=== PATIENT | female | born 1985 | race Caucasian/White ===

== ENCOUNTER 2021-08-11 09:28 | Emergency (ER) | payer MEDICAID ==
[~2021-08-11] VITALS: Ht 165.1 cm; Wt 113.6 kg
[~2021-08-11 09:28] MED LIST: AMOXICILLIN 50500 MG PO; AMOXICILLIN 8751 TAB PO; BACTRIM DS 8001 TA1 PO; CEPHALEXIN500 M1 PO; DOXYCYCLINE 10100 MG PO; LORTAB 5/500 501 TAB PO; METHERGINE0.2 MG/TAB PO; MOTRIN 600600 MG/TAB PO; MOTRIN 800800 MG/TAB PO; NO HOME MEDICATIONS; NORCO 325 MG-51 TAB PO; NORCO 325 MG-7.1 TAB PO; PEN-VEE K500 MG PO; PERCOCET 325 MG1 TA2 PO; PRENATAL 1 PLUS1 TA3 PO; RT ALBUTER2.5 MG/0.5 IH; ULTRAM 50MG TAB50 MG PO; XANAX .25M0.25 MG/TA PO; ZITHROMAX Z PA250 MG PO
[2021-08-11 09:51] VITALS: TEMP 98.3
[2021-08-11 10:40] LABS: BASO % 0.3 % (0.0-2.0); EOS % 0.9 % (0.0-4.0); GRAN # 2.6 K/mm3 (1.4-6.5); GRAN % 73.9 % (42.2-75.2); HEMOGLOBIN 14.1 g/dl (12.5-16.0); LYMPH # 0.6 K/mm3 (1.2-3.4); LYMPH % 18.2 % (20.0-51.0); MEAN CELL VOLUME 78 fl (80.0-100.0); MEAN CORPUSCULAR HEMOGLOBIN 28 pg (27-31); MEAN CORPUSCULAR HGB CONC 35 g/dl (33.0-37.0); MEAN PLATELET VOLUME 11.3 fl (7.4-10.4); MONO # 0.2 K/mm3 (0.1-0.6); MONO % 6.4 % (1.7-9.3); PLATELET COUNT 188 K/mm3 (130-400); RED BLOOD COUNT 5.13 M/mm3 (4.10-5.30); REDCELL DISTRIBUTION WIDTH-CV 12.3 % (11.5-14.5)
[2021-08-11 10:51] LABS: MUCOUS Present (NOT PRESENT); PH 6 (5-8); URINE APPEARANCE Clear (CLEAR/HAZY); URINE BACTERIA Rare /hpf (NONE SEEN); URINE BILIRUBIN Negative (NEGATIVE); URINE BLOOD 3+ (NEGATIVE); URINE COLOR Straw (YELLOW); URINE GLUCOSE 3+ (NEGATIVE); URINE KETONE Trace (NEGATIVE); URINE LEUKOCYTE ESTERASE 1+ (NEGATIVE); URINE NITRATE Negative (NEGATIVE); URINE PROTEIN(semi-quant) Negative (NEGATIVE); URINE UROBILINOGEN Negative (NEGATIVE)
[2021-08-11 11:01] LABS: ALANINE AMINOTRANSFERASE 25 U/L (0-55); ALBUMIN 3.7 gm/dL (3.5-5.0); ALKALINE PHOSPHATASE 60 U/L (40-150); ANION GAP 13 mmol/L (7-16); AST,SGOT 20 U/L (5-34); BILIRUBIN,TOTAL 0.3 mg/dL (0.2-1.2); BLOOD UREA NITROGEN 6 mg/dL (7-19); CALCIUM 8.4 mg/dL (8.4-10.2); CARBON DIOXIDE 25 mmol/L (22-29); CHLORIDE 96 mmol/L (98-107); POTASSIUM 3.4 mmol/L (3.5-4.5); SODIUM 134 mmol/L (136-145); TOTAL PROTEIN 7.6 gm/dL (6.2-8.1)
[2021-08-11 11:07] LABS: GLUCOSE 406 mg/dL (70-99); TROPONIN-I < 0.010 ng/mL (0.00-0.033)
[2021-08-11 11:15] LABS: COLLECTION METHOD CLEAN CATCH
[2021-08-11 13:10] LABS: ANION GAP 10 mmol/L (7-16); BLOOD UREA NITROGEN 6 mg/dL (7-19); CALCIUM 7.8 mg/dL (8.4-10.2); CARBON DIOXIDE 26 mmol/L (22-29); CHLORIDE 100 mmol/L (98-107); CREATININE, serum 0.67 mg/dL (0.57-1.11); GLUCOSE 319 mg/dL (70-99); POTASSIUM 3.7 mmol/L (3.5-4.5); SODIUM 136 mmol/L (136-145)
[2021-08-11 13:21] LABS: TROPONIN-I < 0.010 ng/mL (0.00-0.033)
[2021-08-11 14:27] VITALS: BP 137/90; PULSE 75
[2021-08-11] MEDS ORDERED: GLUCOPHAGE500 MG/TAB PO (14:28)
== END 2021-08-11 14:30 | disposition home or self-care (01) ==
LOC: COL.ER 09:28
PROVIDERS: Emergency Medicine
DX: U07.1 COVID-19 (principal); R55 Syncope and collapse; R20.2 Paresthesia of skin; R73.9 Hyperglycemia, unspecified; R81 Glycosuria; R82.4 Acetonuria; Z28.310 Unvaccinated for COVID-19
CPT/HCPCS: J0610; J1885; J2405; J7030; J7120

== ENCOUNTER 2023-08-08 07:40 | Emergency (ER) | payer SELFPAY ==
[~2023-08-08] VITALS: Ht 162.6 cm; Wt 112.3 kg
[~2023-08-08 07:40] MED LIST changes: +GLUCOPHAGE500 MG/TAB PO
[2023-08-08 07:47] VITALS: TEMP 98.3
[2023-08-08] MEDS ORDERED: PREDNISONE20 MG PO (10:24)
[2023-08-08] MEDS ORDERED: PROAIR HFA0.09 MG/AC IH (10:24)
[2023-08-08] MEDS ORDERED: ZITHROMAX Z PA250 MG PO (10:24)
[2023-08-08 10:46] VITALS: BP 134/92; PULSE 79
== END 2023-08-08 10:51 | disposition home or self-care (01) ==
LOC: COL.ER 07:40
DX: J20.9 Acute bronchitis, unspecified (principal); Z87.891 Personal history of nicotine dependence